=== PATIENT | female | born 1970 | race Caucasian/White ===

== ENCOUNTER 2025-01-20 19:52 | Emergency (ER) | payer BC, SELFPAY ==
--- OUTSIDE RECORDS SUMMARY | 2020-04-21 10:15 | XMS_ITS | Continuity of Care Document ---
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 Name Role Phone Lukas Eldridge Unavailable Unavailable Allergies, Adverse Reactions, Alerts Substance Reaction Status Criticality NALBUPHINE HCL Active No Informatio n Opioids - Morphine Analogues Active No Information PROMETHAZINE HCL Active No Informat ion HYDROMORPHONE HCL Active No Informa tion KETOROLAC TROMETHAMINE Active No In formation MORPHINE SULFATE Active No Informat ion Procedures Procedure Date Moderna COVID Vaccine Admin Dose 2 Moderna COVID-19 Vaccine Covid Testing [facility] Moderna COVID Vaccine Admin Dose 1 Moderna COVID-19 Vaccine TB Read TB INTRADERMAL TEST TB Read TB INTRADERMAL TEST TB INTRADERMAL TEST Advance Directives Directive Yes / No Effective Date File Name No Information Encounters Encounter Description Practice Location Reason(s) For Visit Diagnoses Date Provider Providers Copied on Encounter [facility] [address], [place], [id number], [place] tel:[phone] [facility] No Information Katharina Ellington. [address], [place], [id number], [place]. tel:[phone] [facility] [address], [place], [id number], [place] tel:[phone] [facility] Encounter for screening for other viral diseases Visci Lukas. [address], [place], [id number], [place]. tel:[phone] [facility] [address], [place], [id number], [place] tel:[phone] [facility] No Information Katharina Ellington. [address], [place], [id number], [place]. tel:[phone] [facility] [address], [place], [id number], [place] tel:[phone] [facility] No Information Visci DO Gaytan. [address], [place], [id number], [place]. tel:[phone] [facility] [address], [place], [id number], [place] tel:[phone] [facility] Encounter for screening for respiratory tuberculosis Visci DO Lukas. [address], [place], [id number], [place]. tel:[phone] [facility] [address], [place], [id number], [place] tel:[phone] [facility] No Information Visci Lukas. [address], [place], [id number], [place]. tel:[phone] [facility] [address], [place], [id number], [place] tel:[phone] [facility] Encounter for screening for respiratory tuberculosis Visci DO Lukas. [address], [place], [id number], [place]. tel:[phone] [facility] [address], [id number], [place] tel:[phone] [facility] Encounter for screening for respiratory tuberculosis Visci DO Lukas. [address] [place] [address], [id number], [place]. tel:[phone] Family History Family Member Type Diagnosis Age At Onset No Information Immunizations Vaccine Date Status Comments Robert COVID administered Source: New Im munization Record Moderna COVID administered Source: New Im munization Record Payers Payer name Insurance type Covered republican ID Authoriza tion(s) [employer] CI [id number] [email or web address] [id number] Social History Type Description Quantity Date Captured Comments Alcohol Use Details Unknown Caffeine Use Details Unknown Tobacco Use Status No Information Smoking Status No Information Sex Female Sexual Orientation Straight or heterosexual Gender Identity Female Chief Complaint And Reason For Visit No Information Reason For Referral Reason For Referral No Information History Of Present Illness Encounter Date Complaint History Of Prese nt Illness No Information Functional Status Date Functional Assessmen t No Information Instructions Date Instruction Additional Infor mation No Information Assessments Type Assessment Date No Information Patient Care Teams Name Effective Dates (start - stop) Status Members No Information
[2025-01-20 19:59] VITALS: BP 151/94; PULSE 99; TEMP 36.7; O2SAT 98; BMI 30.2
--- OUTSIDE RECORDS SUMMARY | 2025-01-20 20:05 | XMS_ITS | Clinical Summary ---
Author Organization [facility] Address [address] 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
--- NOTE | 2025-01-20 20:06 | XR_ITS ---
[place] [id number] Patient Name: JITENDRA ODONNELL MRN: [id number] date: 1970 Sex: F Assigned Patient Location: ED.MAIN Current Patient Location: ED.MAIN Accession/Order Number: [id number] Exam Date: 01/20/2025 20:14 Report Date: 01/20/2025 20:47 At the request of: BRIGHT PATEL Procedure: XR foot LT min 3V 3 views left foot plain film COMPARISON:None HISTORY: Left ankle injury today ACUTE FINDINGS: None DEGENERATIVE CHANGE: Unremarkable SOFT TISSUE FINDINGS: Unremarkable JOINT EFFUSION: None POSTOP CHANGES: None BONE MINERALIZATION: Adequate XR/XR foot LT min 3V IMPRESSION: No acute displaced fracture Impression dictated by: Mumtaz Rivers M.D. 01/20/2025 8:47 PM Dictation Location: [place] [address] Electronically authenticated by: [id number] Y Date: 01/20/2025 20:47
--- NOTE | 2025-01-20 20:06 | ED_ITS ---
HPI HPI - Extremity Injury (Lower) General Chief Complaint: Extremity Injury, Lower Stated Complaint: Extremity Injury, Lower Time Seen by Provider: 01/20/25 20:06 Source: patient Mode of arrival: Wheelchair Limitations: no limitations History of Present Illness HPI Narrative: 54 year old female presents to the ED for pain to her left ankle s/p injury this evening. Reports rolling her ankle on uneven ground. Denies weakness, N/T. She is having difficulty bearing weight due to the pain. States she is allergic to all opiates. Related Data Allergies Allergy/AdvReac Type Severity Reaction Status Date / Time bee pollen Allergy Severe Anaphylaxis Verified 01/20/25 20:10 hydromorphone (From Dilaudid) Allergy Severe Anaphylaxis Verified 01/20/25 20:10 ketorolac (From Toradol) Allergy Severe Anaphylaxis Verified 01/20/25 20:10 meperidine (From Demerol) Allergy Severe Anaphylaxis Verified 01/20/25 20:10 nalbuphine (From Nubain) Allergy Severe Anaphylaxis Verified 01/20/25 20:10 promethazine (From Phenergan) Allergy Severe Anaphylaxis Verified 01/20/25 20:10 tramadol Allergy Severe Anaphylaxis Verified 01/20/25 20:10 azithromycin (From Zithromax) Allergy Intermediate Hives Verified 01/20/25 20:10 Opioids - Morphine Analogues Allergy Intermediate Anaphylaxis Verified 01/20/25 20:10 Opioid HPI Opioid Management Most Recent Pain and Opioid Data: Last Pain Scale 10 Today, 21:18 Last MAR Pain Assessment Today, 21:18 Review of Systems ROS Constitutional Denies: fever or chills Musculoskeletal Reports: extremity pain; Denies: back pain Integumentary/Breast Denies: rash Neurological Denies: numbness in extremities or weakness in extremities PFSH PFSH Social History Little interest or pleasure in doing things: not at all Feeling down, depressed, or hopeless: not at all Exam Constitutional Vital Signs, click to edit/add: Last Vital Signs Temp 98.1 F 01/20/25 19:59 Pulse 99 H 01/20/25 19:59 Resp 18 01/20/25 19:59 BP 151/94 H 01/20/25 19:59 Pulse Ox 98 01/20/25 19:59 O2 Del Method Room Air 01/20/25 19:59 Common normals: no apparent distress and oriented x3 General appearance: cooperative HENMT Common normals: moist oral mucous membranes Eye Common normals: conjunctivae normal and no scleral icterus Neck & C-Spine Common normals: supple Chest Chest: symmetrical chest wall rise Respiratory Common normals: normal respiratory effort Effort & inspection: able to speak in complete sentences and symmetric chest movement Cardio Common normals: regular rate Peripheral pulses: posterior tibial pulses present and dorsalis pedis pulses present Extremity Other: Tenderness to left lateral and medial ankle areas. There is a small area of swelling to the left lateral proximal foot/ankle area. No obvious deformity. Distal sensation intact. Pt able to move toes of the foot. Neuro Common normals: oriented x3 and moves all extremities Sensorium/orientation: awake and alert Speech: speech normal Course Vital Signs Vital signs: Vital Signs Temperature 98.1 F 01/20/25 19:59 Pulse Rate 99 H 01/20/25 19:59 Respiratory Rate 18 01/20/25 19:59 Blood Pressure 151/94 H 01/20/25 19:59 Pulse Oximetry 98 01/20/25 19:59 Oxygen Delivery Method Room Air 01/20/25 19:59 Temperature 98.1 F 01/20/25 19:59 Pulse Rate 99 H 01/20/25 19:59 Respiratory Rate 18 01/20/25 19:59 Blood Pressure 151/94 H 01/20/25 19:59 Pulse Oximetry 98 01/20/25 19:59 Oxygen Delivery Method Room Air 01/20/25 19:59 MDM - Extremity Injury (Lower) MDM Narrative Medical decision making narrative: X-ray showed no acute osseous abnormality. Findings were discussed. She requested Motrin which was provided. An víctor wrap was applied. The application was checked and was appropriate; the LLE remained NVI. Follow up with pcp and/or podiatry for a recheck, further evaluation and treatment. She was given crutches for extra support with ambulation. Teaching was done. Medical Records Attestation: I reviewed the patient's medical records. Imaging Data XR: Attestation: I have reviewed the pertinent imaging results. Radiologist's impression: ITS Impressions Ankle X-Ray 01/20/25 20:06 IMPRESSION: No acute displaced fracture Impression dictated by: Mumtaz Rivers M.D. 01/20/2025 8:46 PM Dictation Location: [facility] Electronically authenticated by: [id number] Y Date: 01/20/2025 20:46 Foot X-Ray 01/20/25 20:06 IMPRESSION: No acute displaced fracture Impression dictated by: Mumtaz Rivers M.D. 01/20/2025 8:47 PM Dictation Location: [facility]--[facility] Electronically authenticated by: [id number] Y Date: 01/20/2025 20:47 Discharge Plan Discharge Chief Complaint: Extremity Injury, Lower Clinical Impression: Ankle sprain and strain Patient Disposition: Home, Self-Care Time of Disposition Decision: 20:56 Condition: Good Mode of Transportation: Private Vehicle Print Language: Kittitian Instructions: Ankle Sprain (ED), P.R.I.C.E. Treatment (ED) Additional Instructions: Return to the ED for worsening symptoms. Referrals: Physician,Non-Staff, MD [Primary Care Provider] - 1 week Ankush Aponte DPM [Physician, Podiatry] - 1 week
--- NOTE | 2025-01-20 20:06 | XR_ITS ---
The [address] [address] Patient Name: JITENDRA ODONNELL MRN: [id number] date: 1970 Sex: F Assigned Patient Location: ED.MAIN Current Patient Location: ED.MAIN Accession/Order Number: [id number] Exam Date: 01/20/2025 20:14 Report Date: 01/20/2025 20:46 At the request of: BRIGHT PATEL Procedure: XR ankle LT min 3V 3 views left ankle plain film COMPARISON: None HISTORY: Left ankle injury today ACUTE FINDINGS: None DEGENERATIVE CHANGE: Unremarkable SOFT TISSUE FINDINGS: Anterior soft tissue prominence JOINT EFFUSION: None POSTOP CHANGES: None BONE MINERALIZATION: Adequate XR/XR ankle LT min 3V IMPRESSION: No acute displaced fracture Impression dictated by: Mumtaz Rivers M.D. 01/20/2025 8:46 PM Dictation Location: [place] [address] Electronically authenticated by: [id number] Y Date: 01/20/2025 20:46
[2025-01-20] MEDS: IBUPROFEN 400 MG TABLET 800 MG PO (21:18)
== END 2025-01-20 21:38 | disposition home or self-care (01) ==
PROVIDERS: Emergency Provider Emergency Medicine
DX: S93.402A Sprain of unspecified ligament of left ankle, initial encounter (principal); S96.912A Strain of unspecified muscle and tendon at ankle and foot level, left foot, initial encounter; X50.1XXA Overexertion from prolonged static or awkward postures, initial encounter
CPT/HCPCS: 73610; 73630; 99284